=== PATIENT | male | born 1945 | race Caucasian/White ===

== ENCOUNTER 2019-06-19 08:01 | Outpatient (CLI) | payer OTHER, SELFPAY ==
--- NOTE | 2019-06-19 08:12 | CT_ITS ---
WS: [id number] CT ABDOMEN CONTRAST TECHNIQUE: Contrast enhanced CT of the abdomen with coronal and sagittal reformatted images. CLINICAL INFORMATION: ABDOMINAL PAIN COMPARISON: None. DLP: 879.[address] scans at [facility] use at least one of these dose optimization techniques: automat ed exposure control; mA and/or kV adjustment per patient size (includes targeted exams where dose is matched to clinical indication); or iterative reconstruction. FINDINGS: Bilobed abdominal aortic aneurysm measuring 3.6 x 2.9 x 4.5 CM AP by transverse by craniocaudal in ma ximum dimension. 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 Additional aneu rysmal suprarenal upper abdominal aorta with peripheral mural thrombus measuring 4.1 x 3.6 cm AP by t ransverse. Liver is normal. Normal portal vein and splenic vein. Normal gallbladder. Normal spleen. Normal GE ju nction. Celiac and SMA are patent. 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 Lef t renal artery is patent. Adrenal glands are normal. Normal renal parenchymal enhancement. Bilateral renal cysts the largest in the left measuring 2.8 cm. No abdominal lymphadenopathy. Subsegmental atelectasis in the lingula and left lung base. 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 Mild lumbar curve. CT/CT abdomen w con* [id number] IMPRESSION: 1. Lobulated bilobed infrarenal abdominal aortic aneurysm measuring3.6 x 2.9 x 4.5 CM AP by transverse by craniocaudal in maximum dimension with peripheral m ural thrombus. 2. Additional suprarenal upper abdominal aortic aneurysm measuring 3.6 x 4.1 c m with peripheral mural thrombus. 3. Left renal cortical cyst measuring 2.8 cm. 4. Dense calcification right renal artery origin with stenosis. This can be fu rther evaluated with CTA or renal artery ultrasound. 5. 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
[2019-06-19] MEDS: iohexol 300 mg/mL 50 mL Btl PO (09:15)
[2019-06-19] MEDS: iohexol 300 mg/mL 100 mL Btl IV (09:15)
== END 2019-06-19 08:02 | disposition home or self-care (01) ==
LOC: RADWPI 08:07
PROVIDERS: PCP Family Medicine; Visit Provider Family Medicine
DX: R10.10 Upper abdominal pain, unspecified (principal); I71.4 Abdominal aortic aneurysm, without rupture; Q61.01 Congenital single renal cyst; I70.8 Atherosclerosis of other arteries; M43.25 Fusion of spine, thoracolumbar region
CPT/HCPCS: 74160; Q9967